=== PATIENT | female | born 1985 | race Caucasian/White ===

== ENCOUNTER → 2024-11-15 10:24 | Outpatient (REF) | payer OTHER, SELFPAY | LOC: PNTC 10:24 | PROVIDERS: ATTENDING PHYSICIAN Obstetrics & Gynecology | DX: O36.80X0 Pregnancy with inconclusive fetal viability, not applicable or unspecified (principal); O09.521 Supervision of elderly multigravida, first trimester | CPT/HCPCS: 76801 ==

== ENCOUNTER → 2024-12-14 16:22 | Outpatient (REF) | payer OTHER, SELFPAY | LOC: PNTC 16:22 | PROVIDERS: ATTENDING PHYSICIAN Obstetrics & Gynecology | DX: O09.521 Supervision of elderly multigravida, first trimester (principal); Z36.82 Encounter for antenatal screening for nuchal translucency; Z36.0 Encounter for antenatal screening for chromosomal anomalies | CPT/HCPCS: 36415; 76801; 76813 ==

== ENCOUNTER → 2025-02-10 09:57 | Outpatient (REF) | payer OTHER, SELFPAY | LOC: PNTC 09:57 | PROVIDERS: ATTENDING PHYSICIAN Obstetrics & Gynecology | DX: O09.512 Supervision of elderly primigravida, second trimester (principal); Z36.2 Encounter for other antenatal screening follow-up | CPT/HCPCS: 76811; 76817 ==

== ENCOUNTER → 2025-03-24 09:40 | Outpatient (REF) | payer OTHER, SELFPAY | LOC: PNTC 09:40 | PROVIDERS: ATTENDING PHYSICIAN Obstetrics & Gynecology; OTHER PHYSICIAN Obstetrics & Gynecology | DX: O09.529 Supervision of elderly multigravida, unspecified trimester (principal); O34.219 Maternal care for unspecified type scar from previous cesarean delivery; Z29.13 Encounter for prophylactic Rho(D) immune globulin | CPT/HCPCS: 36415; 76816; 86850; 86900; 86901; 96372; J2790 ==

== ENCOUNTER 2025-04-25 17:41 | Emergency (ER) | payer OTHER, SELFPAY ==
[2025-04-25 17:51] VITALS: BP 116/83
[2025-04-25 18:16] LABS: Hematocrit 36.8 % (37.0-47.0); Hemoglobin 12.7 g/dL (12.0-16.0); Mean Corp Hgb Conc. 34.5 g/dL (33.0-37.0); Mean Corpuscular Volume 94.8 fL (81.0-99.0); Nucleated Red Blood Cells % 0 %; Platelet Count 258 10^3/uL (130-400); Red Cell Dist. Width 12.3 % (11.5-14.5)
[2025-04-25 18:40] LABS: ALT (SGPT) 19 U/L (0-35); AST (SGOT) 25 U/L (14-36); Albumin 3.7 g/dl (3.5-5.0); Alkaline Phosphatase 123 U/L (38-126); Blood Urea Nitrogen 7 mg/dl (7-17); Calcium 8.8 mg/dl (8.4-10.2); Carbon Dioxide 25 mmol/L (22-30); Chloride 105 mmol/L (98-107); Glucose 88 mg/dl (70-99); Potassium 3.7 mmol/L (3.5-5.1); Sodium 135 mmol/L (135-145); Total Protein 6.3 g/dl (6.3-8.2); eGFR > 60.00
[2025-04-25 20:02] VITALS: BMI 22.0
[2025-04-25 20:03] VITALS: BP 101/65
[2025-04-25] MEDS: NSS 1000 IV (21:43)
--- NOTE | 2025-04-25 22:09 | ED.GENMED ---
History of Present Illness
General
Chief Complaint: Fainting/Passed Out
Time Seen by Provider: 04/25/25 19:45
History of Present Illness
History of Present Illness:
39-year-old female, G2, P1 currently 31 weeks gestational age, presents to the emergency department for evaluation after a syncopal event. 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
in and began to feel profoundly lightheaded and had a witnessed syncopal event. She did strike her head on the ground. Uncertain if she injured her abdomen. She reports continued movements and no vaginal discharge or bleeding. She
currently feels well. She reports drinking adequate amount of fluids daily
Review of Systems
Review of Systems
Allergies reviewed?: Yes
All Other Systems: ROS reviewed and negative except as documented in HPI and ROS
Phy Exam
Physical Exam
Physical Exam:
GEN: Well appearing, NAD, WDWN
HEENT: Small area of ecchymosis to the left frontal scalp with no gross deformity, oral mucosa moist, no scleral icterus
Cardiac: Regular rate
Lung: No respiratory distress, no tachypnea
MSK: No gross deformity or injuries
Skin: Good color, no pallor or jaundice, no rashes
Neuro: AO x3, cranial nerves II through XII grossly intact, moves all extremities freely
Psych: Calm, cooperative
Course
Orders/Labs/Results
Orders:
Orders
04/25/25 17:55
EKG [Electrocardiogram (*1)] Urgent
Reason for Study: Vertigo / Dizzy
EKG- Treatment ONCE
04/25/25 18:06
CMP [Comprehensive Metabolic Panel] Urgent
Complete Blood Count/With Diff Urgent
04/25/25 21:26
0.9% Sodium Chloride 1000 ml [Nss] 1,000 ml IV BOLUS
Abnormal Lab Results
04/25/25
18:06
RBC 3.88 L 10^6/uL
(4.20-5.40)
Hct 36.8 L %
(37.0-47.0)
MCH 32.7 H pg
(27.0-31.0)
Abs Immat Gran (auto) 0.1 H 10^3/uL
(0-0.05)
Absolute Neuts (auto) 8.6 H 10^3/uL
(1.4-6.5)
Absolute Monos (auto) 0.8 H 10^3/uL
(0.1-0.6)
Immature Gran % 0.6 H %
(0-0.5)
Neutrophils % 79.1 H %
(42.2-75.2)
Lymphocytes % 11.7 L %
(20.5-51.1)
04/25/25 18:06
04/25/25 18:06
Vital Signs
Initial and Last Documented VS:
Initial Vital Signs
Temp Pulse Resp BP Pulse Ox
97.8 F 87 18 116/83 100
04/25/25 17:51 04/25/25 17:51 04/25/25 17:51 04/25/25 17:51 04/25/25 17:51
Last Documented Vital Signs
Temp Pulse Resp BP Pulse Ox
97.8 F 84 18 105/65 97
04/25/25 17:51 04/25/25 20:10 04/25/25 17:51 04/25/25 22:36 04/25/25 22:10
MDM/Problems Addressed
MDM/Problems Addressed:
From a syncopal standpoint the patient most experienced a vagal event potentially related to IVC compression given that she is of small stature. She does not appear to be hypovolemic and her labs/EKG were normal. Neurologically nonfocal, despite
her head injury I see no indication for CT of the head at this time. I did discuss the case with [employer] on-call who requested nonstress test be performed, this was performed without events and the patient was discharged in stable condition
*Pulse Oximetry
SaO2: 97
Oxygen Mode of Delivery: Room air
Patient hypoxic: no
*Critical Care Note
Total Time (30-74mins, 75-104mins- exclusive of procedures): Not Applicable
ED Attending Note
-
Portions of this chart may have been created with voice recognition software.� Occasional wrong word or��sound alike� substitutions may have occurred due to the inherent limitations of voice recognition software.
Discharge Plan
Departure
Patient Disposition: Home (Routine Discharge)
Date of Disposition: 04/25/25
Time of Disposition: 22:09
Patient with high blood pressure during this ER visit?: No
Discharge Problem:
Syncope
Instructions: Syncope (Fainting) (DC)
Referrals:
Munira Monroe DO [Family Provider, Gynecology]
Interventions
Interventions:
*Risk Screen - Suicide Last Done: 04/25/25 17:51
*General Assessment Last Done: 04/25/25 17:51
*Neglect/Abuse Screening Last Done: 04/25/25 22:37
*ED- Fall Risk Assessment Last Done: 04/25/25 20:35
*ED COVID-19 Vaccine History Last Done: 04/25/25 17:51
*ED Influenza Vaccine History Last Done: 04/25/25 17:51
*Nursing Disposition Last Done: 04/25/25 22:37
ED- Cardiac Assessment Last Done: 04/25/25 20:11
ED- Neurological Assessment Last Done: 04/25/25 20:11
Discharge Date and Time
Discharge Date/Time: 04/25/25 22:40
Print Language: DANISH
[2025-04-25 22:36] VITALS: BP 105/65
== END 2025-04-25 22:40 | disposition home or self-care (01) ==
LOC: EMR 17:41
PROVIDERS: Emergency Medicine; EMERGENCY PHYSICIAN Emergency Medicine; FAMILY PHYSICIAN Obstetrics & Gynecology
DX: O99.891 Other specified diseases and conditions complicating pregnancy (principal); R55 Syncope and collapse; Z3A.31 31 weeks gestation of pregnancy
CPT/HCPCS: 99283; 96360; 80053; 85025; 93005

== ENCOUNTER → 2025-05-05 10:54 | Outpatient (REF) | payer OTHER, SELFPAY | LOC: PNTC 10:54 | PROVIDERS: ATTENDING PHYSICIAN Student in an Organized Health Care Education/Training Program | DX: O09.523 Supervision of elderly multigravida, third trimester (principal); O34.219 Maternal care for unspecified type scar from previous cesarean delivery | CPT/HCPCS: 76816 ==